=== PATIENT | female | born 1960 | race Caucasian/White ===

== ENCOUNTER 2017-07-24 10:16 | Outpatient (CLI) | payer OTHER ==
--- NOTE | 2017-07-28 11:26 | XRAY Report ---
DATE OF SERVICE: 07/24/2017 THREE VIEW RIGHT THUMB: 07/24/2017 CLINICAL INDICATION: Bruising, pain. FINDINGS: AP, lateral, oblique views of the right thumb demonstrate no evidence of acute fracture or dislocation. There is osteoarthritis of the first carpometacarpal joint, moderate. No radiopaque fo reign body is seen in the soft tissues. IMPRESSION: Moderate osteoarthritis of the first carpometacarpal joint. No evidence of acute fractu re. TD: 07/24/2017 20:26
== END 2017-07-24 10:17 | disposition home or self-care (01) ==
LOC: DI 10:16
PROVIDERS: ATTEND Specialist
DX: M18.11 Unilateral primary osteoarthritis of first carpometacarpal joint, right hand (principal)
CPT/HCPCS: 73140